=== PATIENT | female | born 1995 | race African-American/Black ===

== ENCOUNTER 2023-01-30 05:46 | Emergency (ER) | payer OTHER, SELFPAY ==
--- NOTE | ~2023-01-30 | US_ITS ---
Limited obstetrical ultrasound, 01/30/2023 INDICATION: Midline suprapubic pain TECHNIQUE: Transabdominal imaging was performed and permanent documented images obtained and cine loops provided. FINDINGS: Single live intrauterine gestation is identified in the breech position with a heart rate of 136 bpm. movement noted on cine images. Gestational age from earlier ultrasound is 18 weeks 5 days with estimated date of delivery of 06/28/2023. Placenta is posterior in location and appears normal. Left ovary measures 1.9 x 1.3 x 1.7 cm and is unremarkable in appearance with demonstrable flow. Prominent left adnexal vessels. Right ovary was not seen. US/US OB limited IMPRESSION: Live intrauterine gestation. Unremarkable posterior placenta. Question left pelvic congestion.
--- NOTE | ~2023-01-30 | US_ITS ---
Limited obstetrical ultrasound, 01/30/2023 INDICATION: Midline suprapubic pain TECHNIQUE: Transabdominal imaging was performed and permanent documented images obtained and cine loops provided. FINDINGS: Single live intrauterine gestation is identified in the breech position with a heart rate of 136 bpm. movement noted on cine images. Gestational age from earlier ultrasound is 18 weeks 5 days with estimated date of delivery of 06/28/2023. Placenta is posterior in location and appears normal. Left ovary measures 1.9 x 1.3 x 1.7 cm and is unremarkable in appearance with demonstrable flow. Prominent left adnexal vessels. Right ovary was not seen. US/US pelvic ovarian doppler IMPRESSION: Live intrauterine gestation. Unremarkable posterior placenta. Question left pelvic congestion.
--- NOTE | ~2023-01-30 | US_ITS ---
ULTRASOUND ABDOMEN LIMITED, RIGHT LOWER QUADRANT Clinical indication: Right lower quadrant pain. Evaluate for appendicitis. Comparison: None. Technique: Sagittal and transverse scans of the right lower quadrant were performed using a linear high resolution transducer with graded compression technique, soni scale and color Doppler evaluation. FINDINGS: The appendix could not be confidently visualized. No free fluid in the right lower quadrant. Patient name is 17 weeks . The right ovary is most likely identified and measured 3.8 x 1.6 x 2.5 cm. US/US appendix Impression: Nondiagnostic ultrasound for appendicitis. Appendix not visualized. Recommend close clinical followup. Contrast enhanced CT scan may be considered for further evaluation.
[2023-01-30 05:47] VITALS: BP 115/72; BP 124/60; PULSE 100; PULSE 94; RESP 20; TEMP 37.2; O2SAT 100; O2SAT 99; BMI 17.6
[2023-01-30 06:16] LABS: Glucose, Whole Blood 83 mg/dL (60-115)
[2023-01-30 06:23] LABS: MANUAL DIFF FLAG NO
[2023-01-30 06:26] LABS: Basophils Percent Auto 0.5 % (0-2); Eosinophils Absolute Auto 0.1 X10*3/uL (0.0-0.4); Eosinophils Percent Auto 0.8 % (0-4); Hematocrit 30.8 % (37.0-47.0); Hemoglobin 10.7 g/dl (12.0-16.0); Imm Gran Abs Auto 0.02 X10*3/uL (0.00-0.03); Imm Gran Pct Auto 0.3 % (0.0-0.4); Lymphocytes Absolute Auto 2.7 X10*3/uL (1.2-4.9); Lymphocytes Percent Auto 42.4 % (20-40); Mean Corpuscular HGB Conc 34.7 g/dl (31.0-35.0); Mean Corpuscular Hemoglobin 27.7 pg (27.0-33.0); Mean Corpuscular Volume 79.8 fL (80.0-98.0); Mean Platelet Volume 8.7 fL (9.4-12.3); Monocytes Absolute Auto 0.5 X10*3/uL (0.1-1.2); Monocytes Percent Auto 7.1 % (2-11); Neutrophils Absolute Auto 3.1 x10*3/uL (2.0-8.3); Neutrophils Percent Auto 48.9 % (45-73); Platelet Count 185 X10*3/uL (160-400); Red Blood Count 3.86 X10*6/uL (4.20-5.50); Red Cell Distribution Width 13.9 % (11.0-16.0); White Blood Count 6.4 X10*3/uL (4.8-10.8)
--- NOTE | 2023-01-30 06:54 | ED_ITS ---
HPI - General Adult General Chief complaint: Abdominal Pain Stated complaint: Abd Pain Time Seen by Provider: 01/30/23 06:39 Source: patient and EMS Mode of arrival: EMS Limitations: no limitations History of Present Illness HPI narrative: 27 year old female presents w/ lower abdominal pain w/ radiation into pelvis since last night at approximately 19:00. Patient reports pain started after running and pain is severe, 10/10, worse with movement better at rest. Patient reports that she has never had pain like this before. Has not taken anything for pain. Is up-to-date on care at [facility], taking vitamins every once in a while. Denies vaginal bleeding, discharge, fevers, chills, nausea, vomiting, headache, vision changes, chest pain, shortness of breath. Related Data Allergies Allergy/AdvReac Type Severity Reaction Status Date / Time Penicillins Allergy Rash Verified 01/30/23 05:59 Review of Systems Review of Systems: Constitutional : No Weight loss, No Fever, No Chills, No Fatigue, No Malaise ENT/Mouth : No sore throat, No Rhinorrhea Eyes: No Eye Pain, No Swelling, No Redness Cardiovascular : No Chest Pain, No SOB, No Dyspnea on Exertion, No Orthopnea, No Edema, No Palpitations Respiratory : No Cough, No Sputum, No Wheezing Gastrointestinal : No Nausea, No Vomiting, No Diarrhea, No Constipation, + abdominal Pain, No Hematochezia, No Melena Genitourinary : No Dysuria, No Urinary Frequency, No Hematuria, Musculoskeletal : No joint pain, No Myalgias, No Joint Swelling Skin : No Skin Lesions, No rash Neuro : No Weakness, No Numbness, No Dizziness, No Headache Psych : No Anxiety/Panic, No Depression All other systems reviewed and are negative Yes all other systems are reviewed and are negative [facility] Past Medical History Attestation statement: The following information was validated with the patient. Source: old records reviewed and nursing notes reviewed Social History Social History Alcohol intake: never Smoked in Last 30 Days: No Use of substances other than those prescribed or required for medical reasons: No Advance Directives: No Advance Directives Information Provided: Yes Patient : Yes Physical Exam ED Vital Signs: Vital Signs - 24 hr 01/30/23 05:47 01/30/23 07:00 01/30/23 08:08 Temperature 99.0 F 99.0 F 98.9 F Pulse Rate 94 85 79 Respiratory Rate 20 16 18 Blood Pressure 115/72 110/60 93/58 L Pulse Oximetry 100 98 100 Oxygen Delivery Method Room Air Room Air Room Air 01/30/23 11:25 Temperature 98.4 F Pulse Rate 84 Respiratory Rate 16 Blood Pressure 95/59 L Pulse Oximetry 100 Oxygen Delivery Method Room Air BMI result Body Mass Index 17.6 vss Appearance: Alert.? Oriented X3.? No acute distress.? Head: Normocephalic, atraumatic, no step-offs or deformities Eyes: Pupils equal, round and reactive to light.? CVS: Normal heart rate and rhythm.? Pulses normal.? Respiratory: No respiratory distress.? Breath sounds normal.? Abdomen: Soft and + TTP to lower abdomen diffusely worse to suprpubic region. .? Skin: Skin warm and dry.? Normal skin color.? Normal skin turgor.? Extremities: No lower extremity edema.? No calf ttp. 5/5 strength to bilateral upper and lower extremities Back: No midline tenderness, no C-spine tenderness, full range of motion, no CVA tenderness bilaterally Neuro: Oriented X 3.? No motor deficit.? No sensory deficit. CN 2-12 intact Sensative: + Yaa PA- S ream cutter. Cervix anteverted uterus, w/ closed cervix, uncomfortable on exam, moderate to large amount of yellow/green vaginal discharge. B/l adenexal tendernss. ( swabs obtained) Course Reevaluation(s) Reevaluation #1: Patient is noted to have a normocytic anemia this could be as normal variant from . Chemistry unremarkable no acute findings. Albumin slightly low 3.2 likely normal variant of . Beta HCG 18,770. Urine clean no infection. BV and Trichomonas negative. Gonorrhea, chlamydia pending. Ultrasound with a live intrauterine gestation. Unremarkable posterior placenta. Question left pelvic congestion. Normal Doppler flow. Appendix exam unable to visualize the appendix. I have discussed this case with Dr. Jay who states to look for other causes for possible abdominal pain. He reports the pain does not improve patient may have to go to [facility] for higher level of care. Time: 11:00 Reevaluation #2: [facility] Dr. Roxanne Pino aceepts transfer. Reports that this could be an injury secondary to running, patient can have a bleed in the uterus, they will monitor H&H and if needed will take her to the operating room. Patient to be transferred. Patient verbalizes consent of transfer. Time: 12:00 Medications Administered Discontinued Medications Generic Name Dose Route Start Last Admin Trade Name Hank PRN Reason Stop Dose Admin Acetaminophen 650 mg 01/30/23 06:54 01/30/23 07:01 Acetaminophen 325 Mg Tablet PO 01/30/23 06:55 650 mg ONCE ONE Administration Sodium Chloride 1,000 mls @ 999 mls/hr 01/30/23 09:00 01/30/23 10:39 Ns IV 01/30/23 10:00 Infused .Q1H1M DORI Infusion Medical Decision Making Medical Decision Making [facility] Narrative: 08 27 year old female presents w/ lower abd pain since yesterday currently 17 weeks . PE- diffuse lower abd tenderness, worse in suprapubic region. cervix anteverted uterus, w/ closed cervix, uncomfortable on exam, moderate to large amount of yellow/green vaginal discharge. B/l adenexal tendernss. Concerns for UTI vs cystitis vs vaginitis vs cramping d/t . Less likely placenta previa, demise, PID, miscarriage, appendicitis, obstruction, acute abdomen, diverticulitis. Plan- labs, imaging, urine. Differential Diagnosis Differential Diagnoses: The differential diagnosis associated with the presentation includes Concerns for UTI vs cystitis vs vaginitis vs cramping d/t . Less likely placenta previa, demise, PID, miscarriage, appendicitis, obstruction, acute abdomen, diverticulitis. Admission/Observation Consideration of admission/observation: Escalation of care including admission/observation considered likely Consult Healthcare Provider Management of the patient was discussed with: Fur Machine Operator ([facility] and [facility] ) Lab Data [facility] Lab Attestation statement: I reviewed the patient's lab results. 01/30/23 06:14 01/30/23 06:14 Labs: Lab Results 01/30/23 01/30/23 01/30/23 Range/Units 06:10 06:14 06:14 WBC 6.4 (4.8-10.8) X10*3/uL RBC 3.86 L (4.20-5.50) X10*6/uL Hgb 10.7 L (12.0-16.0) g/dl Hct 30.8 L (37.0-47.0) % MCV 79.8 L (80.0-98.0) fL MCH 27.7 (27.0-33.0) pg MCHC 34.7 (31.0-35.0) g/dl RDW 13.9 (11.0-16.0) % Plt Count 185 (160-400) X10*3/uL MPV 8.7 L (9.4-12.3) fL Immature Gran % (Auto) 0.3 (0.0-0.4) % Neut % (Auto) 48.9 (45-73) % Lymph % (Auto) 42.4 H (20-40) % [place] % (Auto) 7.1 (2-11) % Eos % (Auto) 0.8 (0-4) % Baso % (Auto) 0.5 (0-2) % Lymph # (Auto) 2.7 (1.2-4.9) X10*3/uL [place] # (Auto) 0.5 (0.1-1.2) X10*3/uL Eos # (Auto) 0.1 (0.0-0.4) X10*3/uL Baso # (Auto) 0.0 (0.0-0.2) X10*3/uL Abs Immat Gran (auto) 0.02 (0.00-0.03) X10*3/uL Absolute Neuts (auto) 3.1 (2.0-8.3) x10*3/uL Absolute Nucleated RBC 0.000 (0.0-0.012) X10*3/uL Nucleated RBC % (auto) 0.0 (0.0-0.2) /100WBC Sodium 138 (135-145) mmol/L Potassium 3.7 (3.3-5.1) mmol/L Chloride 108 (96-108) mmol/L Carbon Dioxide 22 (22-29) mmol/L Anion Gap 12 (12-20) BUN 8 L (9-16) mg/dL Creatinine 0.68 (0.5-1.4) mg/dL Estim Creat Clear Calc 94.3 Estimated GFR > 60 POC Glucose 83 (60-115) mg/dL Random Glucose 84 (60-115) mg/dL Calcium 8.8 (8.4-10.2) mg/dL Total Bilirubin 0.7 (0.0-1.0) mg/dL AST 14 (5-31) U/L ALT 9 (0-31) U/L Alkaline Phosphatase 64 (39-117) U/L Total Protein 6.5 (6.5-8.0) g/dL Albumin 3.2 L (3.5-5.0) g/dL Beta HCG, Quant 95624 mIU/mL Urine Color Urine Appearance Urine pH (5.0-9.0) Ur Specific [place] (1.005-1.025) Urine Protein (Neg-Trace) mg/dL Urine Glucose (UA) (Negative) mg/dL Urine Ketones (Negative) mg/dL Urine Blood (Negative) Urine Nitrite (Negative) Ur Leukocyte Esterase (Negative) 01/30/23 Range/Units 08:11 WBC (4.8-10.8) X10*3/uL RBC (4.20-5.50) X10*6/uL Hgb (12.0-16.0) g/dl Hct (37.0-47.0) % MCV (80.0-98.0) fL MCH (27.0-33.0) pg MCHC (31.0-35.0) g/dl RDW (11.0-16.0) % Plt Count (160-400) X10*3/uL MPV (9.4-12.3) fL Immature Gran % (Auto) (0.0-0.4) % Neut % (Auto) (45-73) % Lymph % (Auto) (20-40) % [place] % (Auto) (2-11) % Eos % (Auto) (0-4) % Baso % (Auto) (0-2) % Lymph # (Auto) (1.2-4.9) X10*3/uL [place] # (Auto) (0.1-1.2) X10*3/uL Eos # (Auto) (0.0-0.4) X10*3/uL Baso # (Auto) (0.0-0.2) X10*3/uL Abs Immat Gran (auto) (0.00-0.03) X10*3/uL Absolute Neuts (auto) (2.0-8.3) x10*3/uL Absolute Nucleated RBC (0.0-0.012) X10*3/uL Nucleated RBC % (auto) (0.0-0.2) /100WBC Sodium (135-145) mmol/L Potassium (3.3-5.1) mmol/L Chloride (96-108) mmol/L Carbon Dioxide (22-29) mmol/L Anion Gap (12-20) BUN (9-16) mg/dL Creatinine (0.5-1.4) mg/dL Estim Creat Clear Calc Estimated GFR POC Glucose (60-115) mg/dL Random Glucose (60-115) mg/dL Calcium (8.4-10.2) mg/dL Total Bilirubin (0.0-1.0) mg/dL AST (5-31) U/L ALT (0-31) U/L Alkaline Phosphatase (39-117) U/L Total Protein (6.5-8.0) g/dL Albumin (3.5-5.0) g/dL Beta HCG, Quant mIU/mL Urine Color Yellow Urine Appearance Cloudy Urine pH 7.5 (5.0-9.0) Ur Specific [place] 1.015 (1.005-1.025) Urine Protein Negative (Neg-Trace) mg/dL Urine Glucose (UA) Negative (Negative) mg/dL Urine Ketones Negative (Negative) mg/dL Urine Blood Negative (Negative) Urine Nitrite Negative (Negative) Ur Leukocyte Esterase Negative (Negative) Independent Interpretation I performed an independent interpretation of an: Ultrasound Radiology Impression Discussion of test interpretation with radiology: I have reviewed the radiologist's reading. Core Measures AMI core measures followed: Yes Measure exclusions: not indicated Critical Care Time Critical Care Time Critical Care Time: Yes Total Critical Care Time: 35 Attestation: I attest to this time spent taking care of the patient, obtaining history, physical, reviewing labs, imaging, speaking to my attending, speaking to specialist. Discharge Plan Discharge Clinical Impression: Abdominal pain affecting , Vaginal discharge [facility]
[2023-01-30 07:00] VITALS: BP 110/60; PULSE 85; RESP 16; TEMP 37.2; O2SAT 98
[2023-01-30] MEDS: Acetaminophen 325 MG TABLET 650 MG PO (07:01)
[2023-01-30 07:03] LABS: Alanine Aminotransferase 9 U/L (0-31); Albumin Level 3.2 g/dL (3.5-5.0); Alkaline Phosphatase 64 U/L (39-117); Anion Gap 12 (12-20); Aspartate Amino Transferase 14 U/L (5-31); Bilirubin Total 0.7 mg/dL (0.0-1.0); Blood Urea Nitrogen 8 mg/dL (9-16); Calcium 8.8 mg/dL (8.4-10.2); Carbon Dioxide 22 mmol/L (22-29); Chloride 108 mmol/L (96-108); Creatinine Clr Calc Pharmacy 94.3; Estimated Glomerular Filt Rate > 60; Glucose Random 84 mg/dL (60-115); Potassium 3.7 mmol/L (3.3-5.1); Sodium 138 mmol/L (135-145); Total Protein 6.5 g/dL (6.5-8.0)
--- NOTE | 2023-01-30 07:03 | PC.NURSE ---
Addendum entered by Alina Mcclure 01/30/23 07:18: pt denies vaginal bleeding. Original Note: pt a&ox3. respirations even and unlabored. skin appropriate for ethnicity. pt reporting 5/10 pain in the lower abdomen and 10/10 pain when she moves or stands up. abdomen soft but tender to touch in the lower abdomen. abdominal sounds active in all 4 quadrants. vss.
[2023-01-30 07:10] LABS: HCG Quantitative 18770 mIU/mL
[2023-01-30 08:08] VITALS: BP 93/58; PULSE 79; RESP 18; TEMP 37.2; O2SAT 100
[2023-01-30 08:27] LABS: Appearance Urine Cloudy; Color Urine Yellow; Glucose Urine UA Negative (Negative); Leukocyte Esterase Urine Negative (Negative); Nitrite Urine Negative (Negative); PH 7.5 (5.0-9.0); Specific Gravity - Urine 1.015 (1.005-1.025); Urine Blood Negative (Negative); Urine Ketones Negative (Negative); Urine Protein Negative (Neg-Trace)
--- NOTE | 2023-01-30 09:00 | PM.OBCN ---
OB Consult Note - [facility] Data Service Date: 01/30/23 Primary Care Provider: Unknown Physician Narrative I was consulted on Kyle Quintanilla who is a 27 year old female presenting to emergency room with lower abdominal pain, constant in nature not crampy since yesterday. The patient 17 weeks of gestation no associated vaginal bleeding, urinary or GI symptoms OB ON LICENSE OF [facility] Social History Social History Alcohol intake: never Smoked in Last 30 Days: No Use of substances other than those prescribed or required for medical reasons: No Advance Directives: No Advance Directives Information Provided: Yes Patient : Yes Meds Allergies Allergy/AdvReac Type Severity Reaction Status Date / Time Penicillins Allergy Rash Verified 01/30/23 05:59 OB Physical Exam Physical Exam Additional Comments: Physical exam reported by ALISTAIR Xavier as the following: Abdomen: Soft and + TTP to lower abdomen diffusely worse to suprpubic region. .? Cervix anteverted uterus, w/ closed cervix, uncomfortable on exam, moderate to large amount of yellow/green vaginal discharge. B/l adenexal tendernss. ( swabs obtained) OB Consult Results Labs 01/30/23 06:14 01/30/23 06:14 Labs: Short CBC 01/30/23 Range/Units 06:14 WBC 6.4 (4.8-10.8) X10*3/uL Hgb 10.7 L (12.0-16.0) g/dl Hct 30.8 L (37.0-47.0) % Plt Count 185 (160-400) X10*3/uL BMP 01/30/23 06:14 Sodium 138 Potassium 3.7 Chloride 108 Carbon Dioxide 22 BUN 8 L Creatinine 0.68 Calcium 8.8 Liver Function 01/30/23 Range/Units 06:14 Total Bilirubin 0.7 (0.0-1.0) mg/dL AST 14 (5-31) U/L ALT 9 (0-31) U/L Alkaline Phosphatase 64 (39-117) U/L Albumin 3.2 L (3.5-5.0) g/dL Urine 01/30/23 Range/Units 08:11 Urine Color Yellow Urine Appearance Cloudy Urine pH 7.5 (5.0-9.0) Ur Specific [place] 1.015 (1.005-1.025) Urine Protein Negative (Neg-Trace) mg/dL Urine Glucose (UA) Negative (Negative) mg/dL OB - CN: A/P Assessment and Plan (1) Abdominal pain affecting : Status: Acute Plan Differential diagnosis discussed with ALISTAIR Bee recommended transfer tor [facility] for further management. I spent a total of 20 minutes reviewing the chart, communicating to the emergency room provider and documenting in the medical record. Time Spent With Patient Time: Total time managing care of this patient today ____ minutes.
[2023-01-30] MEDS: 0.9 % Sodium Chloride 1,000 ML 999 ML IV (09:04)
[2023-01-30 11:25] VITALS: BP 95/59; PULSE 84; RESP 16; TEMP 36.9; O2SAT 100
[2023-01-30 12:18] LABS: CT PCR NOT DETECTED (Not Detect.); NG PCR NOT DETECTED (Not Detect.)
[2023-01-30 12:55] VITALS: BP 99/69; RESP 18
--- NOTE | 2023-01-30 12:59 | PC.NURSE ---
report given to [facility] nurse.
[2023-01-30 15:23] LABS: BV Int Neg Control Negative (Negative); BV Int Pos Control Positive (Positive)
== END 2023-01-30 13:00 | disposition short-term general hospital (02) ==
PROVIDERS: Physician Assistant; Emergency Provider Emergency Medicine Emergency Medical Services
DX: O26.892 Other specified pregnancy related conditions, second trimester (principal); R10.30 Lower abdominal pain, unspecified; N89.8 Other specified noninflammatory disorders of vagina; D64.9 Anemia, unspecified; Z3A.18 18 weeks gestation of pregnancy
CPT/HCPCS: 0353U; 36415; 76705; 76815; 80053; 81003; 82947; 84702; 85025; 87480; 87510; 87660; 93975; 96360; 96361; 99285

== ENCOUNTER → 2023-01-30 06:33 | Outpatient (BNV) | payer OTHER, SELFPAY | PROVIDERS: Emergency Provider Emergency Medicine Emergency Medical Services; Visit Provider Obstetrics & Gynecology | DX: O26.899 Other specified pregnancy related conditions, unspecified trimester (principal); R10.9 Unspecified abdominal pain | CPT/HCPCS: 99283 ==

== ENCOUNTER 2024-06-08 18:59 | Emergency (ER) | payer OTHER, SELFPAY ==
--- NOTE | ~2024-06-08 | CT_ITS ---
EXAMINATION: CT HEAD WITHOUT CONTRAST CT CERVICAL SPINE WITHOUT CONTRAST CT MAXILLOFACIAL WITHOUT CONTRAST CLINICAL INFORMATION: Fall on ice. Hit in face. Hit head. Left orbital ecchymoses. COMPARISON: None available. TECHNIQUE: Multidetector volumetric imaging of the head was performed without the administration of intravenous contrast. Images were also obtained with through the cervical spine as well as the facial bones from the frontal sinuses through the mandible. Multiplanar reconstructed images in coronal and sagittal orientations were submitted. This CT examination was performed using dose optimization techniques as appropriate, variously including the following: *Automated exposure control *Adjustment of mA and/or kV according to patient size (this includes techniques or standardized protocols for targeted exams where dose is matched to indication/reason for exam; i.e. extremities or head) *Use of iterative reconstruction technique DOSE: 1151 mGy-cm FINDINGS: HEAD: There is no evidence of acute intracranial hemorrhage or territorial infarction. No abnormal mass-effect or midline shift. No extra-axial fluid collections. Sanders to white matter differentiation is well preserved. The ventricles are normal in size and configuration. There is no abnormal attenuation within the brain parenchyma. The soft tissues and osseous structures are normal. The sinuses and mastoid air cells are clear. MAXILLOFACIAL: The mandible, maxilla, pterygoid plates, nasal bones, zygomatic arches, paranasal sinus [place], and bony orbits are intact. No acute osseous abnormality within the maxillofacial region. There is minimal nasal septal deviation to the right side. Of note, there are several left mandibular molars missing and prominent periapical lucencies are seen around several of the teeth. There is a focal groundglass opacity cystic regions seen associated with one of the right mandibular molars, possibly a chronic abscess. The posterior-most remaining molar on the right maxilla appears to be fractured. Metallic wires are seen in place, consistent with braces. The paranasal sinuses and mastoid air cells remain well-aerated. No significant soft tissue findings. CERVICAL SPINE: Vertebral body heights are normal. No fractures of the vertebral bodies or posterior elements. Vertebral alignment is normal. No subluxation. The craniocervical and atlantoaxial articulations are normal. Intervertebral disc heights are normal. No significant degenerative disc disease. Facet joints are normal. No significant paravertebral soft tissue swelling. Cervical soft tissues are unremarkable. Imaged portions of the lung apices are clear. CT/CT cervical spine wo IV con IMPRESSION: 1. No acute intracranial pathology. 2. No acute facial fracture. 3. No acute fracture or malalignment in the cervical spine. 4. Periodontal and disease. Please correlate clinically. Electronically signed by: Morelia Asencio MD 06/08/2024 09:25 PM LILI BECKHAM
[2024-06-08 19:01] VITALS: BP 143/89; PULSE 111; RESP 20; TEMP 37.2; O2SAT 100; BMI 18.3
--- NOTE | 2024-06-08 19:04 | ED_ITS ---
HPI - General Adult General Chief complaint: Wound/Laceration Stated complaint: Hit with snowballl in head/laceration Time Seen by Provider: 06/08/24 21:15 Source: patient and family Mode of arrival: ambulatory Limitations: no limitations History of Present Illness ED Provider: DR. Steel HPI narrative: Patient got hit in the right eye with a Snowball made her lose her balance and fall backward hitting the back of her head with small area of laceration on the left occipital area and minimal scalp bleeding, no LOC, patient is complaining of left-sided headache, and neck pain. No nausea, no vomiting, no blurry vision, no double vision, no CP, no SOB. Related Data Allergies Allergy/AdvReac Type Severity Reaction Status Date / Time Penicillins Allergy Rash Verified 06/08/24 19:05 Review of Systems Review of Systems: All other systems are reviewed and are negative Constitutional: Reports as per HPI and Reports no additional constitutional complaints Eyes: Reports as per HPI and Reports no additional eye complaints Reports system reviewed and no additional complaints, except as documented Cardiovascular: Reports as per HPI and Reports no additional cardiovascular complaints Respiratory: Reports as per HPI and Reports no additional respiratory complaints Gastrointestinal: Reports as per HPI and Reports no additional gastrointestinal complaints Genitourinary: Reports no additional female genitourinary complaints Musculoskeletal: Reports no additional musculoskeletal complaints Skin/Breast: Reports system reviewed and no additional complaints, except as docu Psychiatric: Reports no additional psychiatric complaints Endocrine: Reports no additional endocrine complaints Hematologic/Lymphatic: Reports no additional hematologic/lymphatic complaints Allergic/Immunologic: Reports no additional allergic/immunologic complaints Reports system reviewed and no additional complaints, except as documented and Reports Abnormal speech present [facility] Social History Social History Alcohol intake: never Advance Directives: No Advance Directives Information Provided: No Physical Exam ED Vital Signs: Vital Signs - 24 hr 06/08/24 19:01 06/08/24 21:41 Temperature 99 F 99 F Pulse Rate 111 H 111 H Respiratory Rate 20 20 Blood Pressure 143/89 H 143/89 H Pulse Oximetry 100 100 Oxygen Delivery Method Room Air Room Air BMI result Body Mass Index 18.3 Vital signs have been reviewed and appear to be correct. Blood pressure elevated. Heart rate normal. Respiratory rate normal. Temperature normal. Oxygen saturation normal. Appearance: Alert. Oriented X3. No acute distress. Head: Normal external exam. Normocephalic. Atraumatic. No Guevara signs noted. No raccoon eyes noted Eyes: VA bilateral 20/30, right 20/40, left 20/40. Right periorbital hematoma, PERRLA. EOMI. Conjunctiva and sclera normal. Eyelids normal, no diplopia, no photophobia. ENT: TM's Normal. Pharynx normal. Uvula midline. Moist mucous membranes. No trismus noted. No drooling noted. No muffled voice noted. Neck: Normal inspection. Neck supple. FROM. No adenopathy. Thyroid Normal. No me ningeal signs. No neck mass noted. CVS: Normal heart rate and rhythm. Heart sound normal. No murmurs noted. Pulses normal throughout. Respiratory: No respiratory distress. Painless inspiration. Breath sounds normal. No wheezes/rales/rhonchi noted. Chest nontender. No accessory muscle usage noted or decreased air movement noted. Abdomen: Soft and nontender. Bowel sounds normal in all 4 quadrants. No distention noted. No organomegaly noted. No visible injury noted. Back: No CVA tenderness. Full range of motion noted. Skin: Skin warm and dry. Normal skin color. Normal skin turgor. No ra shes/lesions/lacerations noted. Extremities: No lower extremity edema. Extremities exhibit normal range of motion. Extremities nontender. Neuro: Oriented X 3. Cranial nerve exam: II-XII are grossly intact No motor deficit. No sensory deficit. Reflexes normal. Course Course Course Narrative: RME: 29 yold female presents to the ED for right orbital ecchymosis after being hit by hard snow on face and fell unto her head on driveway. positive for left pairetal scalp laceration Reevaluation(s) Reevaluation #1: 29-year-old female s/p facial/head trauma after head by hard snow ball, GCS of 15, normal neuro exam, CT head/facial CT/cervical spine CT are unremarkable. No sign of orbital muscle entrapment. Will discharge and follow-up with PCP. Time: 22:00 Medical Decision Making Differential Diagnosis Differential Diagnoses: The differential diagnosis associated with the presentation includes (Intracranial bleed, cervical spine injury, facial fracture, chest trauma, extremity trauma, abdominal trauma.) Admission/Observation Consideration of admission/observation: Escalation of care including admission/observation considered Independent Interpretation I performed an independent interpretation of an: CT Scan (Head/facial/cervical spine:1. No acute intracranial pathology. 2. No acute facial fracture. 3. No acute fracture or malalignment in the cervical spine.) Radiology Impression Discussion of test interpretation with radiology: I have reviewed the radiologist's reading. Discharge Plan Discharge Clinical Impression: Contusion of face, Closed head injury Patient Disposition: Home, Self-Care Instructions: Contusion in Adults (ED) Stand Alone Forms: Work/School Release Interventions: ED Discharge Assessment Last Done: 06/08/24 21:41 Discharge Date/Time: 06/08/24 21:42 Print Language: Armenian
[2024-06-08 21:41] VITALS: BP 143/89; PULSE 111; RESP 20; TEMP 37.2; O2SAT 100
== END 2024-06-08 21:42 | disposition home or self-care (01) ==
PROVIDERS: Emergency Provider Emergency Medicine
DX: S01.01XA Laceration without foreign body of scalp, initial encounter (principal); S00.11XA Contusion of right eyelid and periocular area, initial encounter; M54.2 Cervicalgia; R40.2410 Glasgow coma scale score 13-15, unspecified time; R51.9 Headache, unspecified; X58.XXXA Exposure to other specified factors, initial encounter; Y93.29 Activity, other involving ice and snow; Y92.89 Other specified places as the place of occurrence of the external cause; Y99.8 Other external cause status
CPT/HCPCS: 70450; 70486; 72125; 99282; 99284

== ENCOUNTER 2025-01-03 22:40 | Emergency (ER) | payer OTHER, SELFPAY ==
[2025-01-03 22:46] VITALS: BP 137/92; PULSE 94; RESP 16; TEMP 36.8; O2SAT 100; BMI 17.6
--- NOTE | 2025-01-03 22:52 | ECG_ITS ---
Test Reason : WEAKNESS Blood Pressure : */* mmHG Vent. Rate : 83 BPM Atrial Rate : 83 BPM P-R Int : 144 ms QRS Dur : 68 ms QT Int : 352 ms P-R-T Axes : 55 46 30 degrees QTcB Int : 413 ms Normal sinus rhythm Normal ECG No previous ECGs available Referred By: Generic ED Physician Electronically Signed By: Souleymane West
[2025-01-03 23:21] LABS: Hematocrit 36.8 % (37.0-47.0); Hemoglobin 12.6 g/dl (12.0-16.0); Imm Gran Abs Auto 0.01 X10*3/uL (0.00-0.03); Imm Gran Pct Auto 0.2 % (0.0-0.4); Lymphocytes Absolute Auto 2.3 X10*3/uL (1.2-4.9); MANUAL DIFF FLAG NO; Mean Corpuscular HGB Conc 34.2 g/dl (31.0-35.0); Mean Corpuscular Hemoglobin 27.3 pg (27.0-33.0); Mean Corpuscular Volume 79.8 fL (80.0-98.0); NRBC Abs Auto 0.000 X10*3/uL (0.0-0.012); NRBC Pct Auto 0.0 /100WBC (0.0-0.2); Platelet Count 257 X10*3/uL (160-400); Red Blood Count 4.61 X10*6/uL (4.20-5.50); White Blood Count 4.1 X10*3/uL (4.8-10.8)
[2025-01-03 23:34] LABS: Alanine Aminotransferase 16 U/L (0-31); Albumin Level 4.5 g/dL (3.5-5.0); Alkaline Phosphatase 48 U/L (39-117); Anion Gap 10 (12-20); Aspartate Amino Transferase 18 U/L (5-31); Blood Urea Nitrogen 8 mg/dL (9-16); Calcium 9.3 mg/dL (8.4-10.2); Carbon Dioxide 27 mmol/L (22-29); Chloride 108 mmol/L (96-108); Creatinine Clr Calc Pharmacy 70.8; Estimated Glomerular Filt Rate > 60; Magnesium 2.0 mg/dL (1.6-2.6); Potassium 3.7 mmol/L (3.3-5.1); Sodium 141 mmol/L (135-145); Total Protein 7.6 g/dL (6.5-8.0)
[2025-01-04 00:01] LABS: Resp Syncy Virus RNA Qual PCR NEGATIVE (Negative); SARS COV2 PCR INHOUSE NEGATIVE (Negative)
[2025-01-04 00:26] VITALS: BP 114/71; PULSE 78; RESP 16; TEMP 36.8; O2SAT 100
--- NOTE | 2025-01-04 00:39 | ED_ITS ---
HPI - General Adult General Chief complaint: Weakness Stated complaint: Chills/Weakness Time Seen by Provider: 01/04/25 00:30 Source: patient Mode of arrival: ambulatory Limitations: no limitations History of Present Illness ED Provider: Dr. Colleen Stein HPI narrative: Patient comes to the emergency room complaining of several months of fatigue, headaches, lightheadedness. Patient states the for the last 2 days she had a bit of diarrhea and she has been feeling more tired than usual. Patient denies any vomiting. Related Data Previous Rx's ?Medication ?Instructions ?Recorded cefuroxime axetil 250 mg tablet 250 mg PO BID #13 tabs 01/04/25 Allergies Allergy/AdvReac Type Severity Reaction Status Date / Time Penicillins Allergy Rash Verified 01/03/25 22:49 Review of Systems 2 Review of Systems: Constitutional : No Weight loss, No Fever, No Chills, No Night Sweats, complaining of fatigue and generalized malaise ENT/Mouth : No Hearing loss, No Ear Pain, No Nasal Congestion, No Sinus Pain, No Hoarseness, No sore throat, No Rhinorrhea, No Swallowing Difficulty Eyes: No Eye Pain, No Swelling, No Redness, No Foreign Body, No Discharge, No Vision Changes Cardiovascular : No Chest Pain, No SOB, No Dyspnea on Exertion, No Orthopnea, No Edema, No Palpitations Respiratory : No Cough, No Sputum, No Wheezing, No Smoke Exposure, No Dyspnea Gastrointestinal : No Nausea, No Vomiting, few episodes of Diarrhea in the last couple of days, No Constipation, No abdominal Pain, No Hematochezia, No Melena Genitourinary : no irregular bleeding, No Dysuria, No Urinary Frequency, No Hematuria, No Urinary Incontinence, No Urgency, No Flank Pain, No Urinary Flow Changes, No Hesitancy Musculoskeletal : No joint pain, No Myalgias, No Joint Swelling Skin : No Skin Lesions, No rash Neuro : No Weakness, No Numbness, No Paresthesias, No Loss of Consciousness, No Dizziness, No Headache Psych : No Anxiety/Panic, No Depression, No SI/HI/AH/VH, No Social Issues, Heme/Lymph: No Bruising, No Bleeding,No Lymphadenopathy Endocrine : No Polyuria, No Polydipsia, No Temperature Intolerance PMF Social History Social History Alcohol intake: never Advance Directives: No Advance Directives Information Provided: Yes Physical Exam ED Exam Exam: Appearance: Alert. Oriented X3. No acute distress. Eyes: Pupils equal, round and reactive to light. ENT: Pharynx normal. Neck: Normal inspection. Neck supple. No lymph nodes noted. No crepitus CVS: Normal heart rate and rhythm. Pulses normal. Normal S1 and S2 Respiratory: No respiratory distress. Breath sounds normal. No Wheezing. No rales Abdomen: Soft and nontender. No rigidity. No distention. Skin: Skin warm and dry. Normal skin color. Normal skin turgor. Extremities: No lower extremity edema. No Lacerations. No Rash Neuro: Oriented X 3. No motor deficit. No sensory deficit. Moving all extremities. No slurred speech. CN 2 through 12 grossly intact Psych: calm, cooperative, but affect Vital Signs: Vital Signs - 24 hr 01/03/25 22:46 01/04/25 00:26 Temperature 98.2 F 98.3 F Pulse Rate 94 78 Respiratory Rate 16 16 Blood Pressure 137/92 H 114/71 Pulse Oximetry 100 100 Oxygen Delivery Method Room Air Room Air BMI result Body Mass Index 17.6 Course Course Course Narrative: Patient reports multiple of the symptoms for at least couple of months, including fatigue generalized malaise, decreased appetite, unable to sleep. Medications Administered Generic Name Dose Route Start Last Admin Trade Name Freq PRN Reason Stop Dose Admin Sodium Chloride 1,000 mls @ 999 mls/hr 01/04/25 00:37 01/04/25 01:06 Ns IVCONT 01/04/25 01:37 999 mls/hr .Q1H1M ONE Administration Discontinued Medications Generic Name Dose Route Start Last Admin Trade Name Freq PRN Reason Stop Dose Admin Ketorolac Tromethamine 30 mg 01/04/25 00:37 01/04/25 01:05 Ketorolac Tromethamine 30 Mg/Ml Vial IVPUSH 01/04/25 00:38 30 mg ONCE ONE Administration Metoclopramide HCl 10 mg 01/04/25 00:37 01/04/25 01:05 Metoclopramide Hcl 10 Mg/2 Ml Vial IVPUSH 01/04/25 00:38 10 mg ONCE ONE Administration Medical Decision Making Medical Decision Making MDM Narrative: Patient was given a PHQ-9 patient depression questionnaire. Patient reported little interest or pleasure in doing things, feeling down, depressed or hopeless, trouble staying asleep/falling asleep or sleeping too much, feeling tired having little energy, reports poor appetite, trouble concentrating on things such as reading the newspaper watching TV. Overall, patient is score was 11, which may indicate that patient has moderate depression. My interpretation of labs: No significant abnormality in patient's hematology and chemistry, beta hCG negative, normal LFTs. Patient does have a urine tract infection, given the 1st dose of antibiotics in the ED I discussed the above-mentioned with the patient, patient instructed to follow with her primary care physician, patient given information for outpatient therapists. I discussed with the patient to get her UTI treated 1st, and then if she continues feeling depressed, she needs to seek help. Patient denies SI or HI Differential Diagnosis Differential Diagnoses: The differential diagnosis associated with the presentation includes (Viral syndrome, UTI, depression) Admission/Observation Consideration of admission/observation: Escalation of care including admission/observation considered (Given patient's symptoms and history, observation was considered) Lab Data MDM Lab Attestation statement: I reviewed the patient's lab results. 01/03/25 23:16 01/03/25 23:16 Labs: Lab Results 01/03/25 01/04/25 Range/Units 23:16 00:45 WBC 4.1 L (4.8-10.8) X10*3/uL RBC 4.61 (4.20-5.50) X10*6/uL Hgb 12.6 (12.0-16.0) g/dl Hct 36.8 L (37.0-47.0) % MCV 79.8 L (80.0-98.0) fL MCH 27.3 (27.0-33.0) pg MCHC 34.2 (31.0-35.0) g/dl RDW 12.6 (11.0-16.0) % Plt Count 257 D (160-400) X10*3/uL MPV 8.6 L (9.4-12.3) fL Immature Gran % (Auto) 0.2 (0.0-0.4) % Neut % (Auto) 36.0 L (45-73) % Lymph % (Auto) 55.9 H (20-40) % [place] % (Auto) 5.4 (2-11) % Eos % (Auto) 1.5 (0-4) % Baso % (Auto) 1.0 (0-2) % Lymph # (Auto) 2.3 (1.2-4.9) X10*3/uL [place] # (Auto) 0.2 (0.1-1.2) X10*3/uL Eos # (Auto) 0.1 (0.0-0.4) X10*3/uL Baso # (Auto) 0.0 (0.0-0.2) X10*3/uL Abs Immat Gran (auto) 0.01 (0.00-0.03) X10*3/uL Absolute Neuts (auto) 1.5 L (2.0-8.3) x10*3/uL Absolute Nucleated RBC 0.000 (0.0-0.012) X10*3/uL Nucleated RBC % (auto) 0.0 (0.0-0.2) /100WBC Sodium 141 (135-145) mmol/L Potassium 3.7 (3.3-5.1) mmol/L Chloride 108 (96-108) mmol/L Carbon Dioxide 27 (22-29) mmol/L Anion Gap 10 L (12-20) BUN 8 L (9-16) mg/dL Creatinine 0.89 (0.5-1.4) mg/dL Estim Creat Clear Calc 70.8 Estimated GFR > 60 Random Glucose 97 (60-115) mg/dL Calcium 9.3 (8.4-10.2) mg/dL Magnesium 2.0 (1.6-2.6) mg/dL Total Bilirubin 0.9 (0.0-1.0) mg/dL AST 18 (5-31) U/L ALT 16 (0-31) U/L Alkaline Phosphatase 48 (39-117) U/L Total Protein 7.6 (6.5-8.0) g/dL Albumin 4.5 (3.5-5.0) g/dL Beta HCG, Quant < 2 mIU/mL Urine Color Yellow Urine Appearance Clear Urine pH 6.0 (5.0-9.0) Ur Specific [place] 1.020 (1.005-1.025) Urine Protein Negative (Neg-Trace) mg/dL Urine Glucose (UA) Negative (Negative) mg/dL Urine Ketones Trace (Negative) mg/dL Urine Blood Negative (Negative) Urine Nitrite Positive H (Negative) Ur Leukocyte Esterase Small (1+) H (Negative) Urine RBC 0-2 (0-2) /HPF Urine WBC 11-20 H (0-5) /HPF Ur Squamous Epith Cells 3-5 (0-2) /HPF Urine Bacteria 4+ (None Seen) Hyaline Casts 0-2 (0-2) /LPF Influenza Type A (PCR) NEGATIVE (Negative) Influenza Type B (PCR) NEGATIVE (Negative) RSV RNA Qual (PCR) NEGATIVE (Negative) SARS-CoV-2 RNA (RT-PCR) NEGATIVE (Negative) Critical Care Time Critical Care Time Critical Care Time: Yes Total Critical Care Time: 35 Attestation: I have personally provided critical care time. Time includes review of lab data, radiology results, discussion with consultants, and monitoring for potential decompensation. Intervention performed as documented. Discharge Plan Discharge Clinical Impression: UTI (urinary tract infection), Chronic fatigue, Depression Patient Disposition: Home, Self-Care Instructions: Urinary Tract Infection in Women (ED), Depression (ED), Fatigue (ED) Additional Instructions: Please follow-up with your primary care physician tomorrow. If you have any worsening or new symptoms, please return to the emergency room or call 911 Prescriptions: New cefuroxime axetil 250 mg tablet 250 mg PO BID Qty: 13 0RF Print Language: [place]
[2025-01-04 01:01] LABS: Appearance Urine Clear; Glucose Urine UA Negative (Negative); PH 6.0 (5.0-9.0); Specific Gravity - Urine 1.020 (1.005-1.025); UMIC TRIGGER UACC YES
[2025-01-04 01:04] LABS: UACC Culture Trigger YES
[2025-01-04 03:24] VITALS: BP 121/70; PULSE 82; RESP 16; TEMP 36.6; O2SAT 98
[2025-01-04 03:25] VITALS: BP 121/70; PULSE 82; RESP 16; TEMP 36.6; O2SAT 98
== END 2025-01-04 03:25 | disposition home or self-care (01) ==
PROVIDERS: Emergency Provider Emergency Medicine
DX: N39.0 Urinary tract infection, site not specified (principal); R42 Dizziness and giddiness; F33.1 Major depressive disorder, recurrent, moderate; R51.9 Headache, unspecified; R10.2 Pelvic and perineal pain; R11.0 Nausea; Z03.818 Encounter for observation for suspected exposure to other biological agents ruled out; Z79.899 Other long term (current) drug therapy
CPT/HCPCS: 80053; 81001; 81003; 83735; 84702; 85025; 87086; 87088; 87186; 87637; 93005; 96361; 96374; 96375; 99284; 99285; J1885; J2765

== ENCOUNTER → 2025-01-03 22:52 | Outpatient (BNV) | payer OTHER, SELFPAY | PROVIDERS: Emergency Provider Emergency Medicine; Visit Provider Internal Medicine Cardiovascular Disease | DX: R53.1 Weakness (principal) | CPT/HCPCS: 93010 ==